=== PATIENT | male | born 1955 | race Caucasian/White ===

== ENCOUNTER 2020-05-31 09:25 | Outpatient (RCR) | payer BC, MEDICARE, SELFPAY | END 2020-06-03 15:14 | disposition home or self-care (01) | LOC: HO.WCC 09:25 | PROVIDERS: Visit Provider Physician Assistant | DX: E11.621 Type 2 diabetes mellitus with foot ulcer (principal); E11.52 Type 2 diabetes mellitus with diabetic peripheral angiopathy with gangrene; L97.512 Non-pressure chronic ulcer of other part of right foot with fat layer exposed; T87.89 Other complications of amputation stump; Z89.421 Acquired absence of other right toe(s) | CPT/HCPCS: 87071; 87077; 87186; 87205; 99203 ==